=== PATIENT | male | born 1940 | race Caucasian/White ===

== ENCOUNTER → 2017-06-06 | Day surgery (SDC) | payer MEDICARE, OTHER ==
[~2017-06-06] VITALS: Ht 190.5 cm; Wt 173.7 kg
[~2017-06-06] MED LIST: ACET1TAB12 PO; AMOX-366 PO; AMOX500C2 PO; ASPI-973 PO; CARV25TA2 PO; FERR325C PO; FEXO-106 PO; FLUT9.9S NS; FRSM80T PO; FUR20 PO; KEN1O TOP; LAC10 PO; LATA2.5D5 OP; LOSA100T3 PO; Lactated Ringer's 1,000 ML IV ONE; Lactated Ringer's 1,000 ML IV SCH; MELA5TAB14 PO; NOVALOG SQ; NYST15CR TP; NYST60PO TP; OMEP40CA36 PO; ONDA4TAB6 PO; OXYC5TAB72 PO; POLY17PO6 PO; PRAZ2CAP2 PO; PRV40T PO; Propofol 10,000 mCg/mL 20 mL Inj ONE; SENN-133 PO; SERT100T9 PO; WOOL454C TP; ZYL100 PO; [UNRECOGNIZED DRUG - OTHER] SQ; [UNRECOGNIZED DRUG - OTHER] SQ; calcitriol PO; gas relief PO
[2017-06-06 08:27] VITALS: BP 127/70; PULSE 59; RESP 15; O2SAT 96
[2017-06-06 08:51] VITALS: BP 136/74; PULSE 65; RESP 14; O2SAT 95
--- NOTE | 2017-06-06 09:09 | ENDO ---
[address] [address] ENDOSCOPY PROCEDURE PATIENT: JULIETTE MANSFIELD : 1940 MR#: [id number] ADMIT: 06/06/2017 JOB ID: [id number] DATE OF SERVICE: 06/06/2017 TITLE OF OPERATION: Esophagogastroduodenoscopy with biopsy and hot snare polypectomy. PREOPERATIVE DIAGNOSIS(ES): Dysphagia. POSTOPERATIVE DIAGNOSIS(ES): 1. Normal esophagus status post biopsy. 2. Food in the stomach. 3. Mild nonerosive gastritis. 4. A 1 cm gastric polyp seen in the body status post hot snare polypectomy. ANESTHESIA: Monitored anesthesia care. COMPLICATIONS: None. BLOOD LOSS: Minimal. DESCRIPTION OF PROCEDURE: After risks and benefits were explained to the patient, informed consent was obtained. After anesthesia administered, an upper endoscope was inserted in the mouth intubating to the esophagus, stomach, and second portion of duodenum. Mucosa carefully examined. After procedure done, scope withdrawn and procedure terminated. FINDINGS: Upon inspection the esophagus, esophagus was normal without masses, ulcers, or lesions. Z-line located 40 cm from incisors upon entering the stomach. In the stomach, there appeared to be some mild food that was seen in the stomach. There was also a 1 cm gastric polyp seen in the body which was removed by hot snare polypectomy. There was also mild nonerosive gastritis. Duodenal bulb, first and second portion were normal. Biopsies taken from the antrum, body and mid distal esophagus. IMPRESSIONS: 1. Mild nonerosive gastritis. 2. Food in the stomach. 3. A 1 cm gastric body polyp removed by hot snare polypectomy. RECOMMENDATIONS: Await pathology results. Continue omeprazole 40 mg by mouth twice a day. Follow up in GI clinic as needed.
[2017-06-06 09:12] VITALS: BP 142/73; PULSE 60; RESP 16; O2SAT 96
--- NOTE | 2017-06-06 16:35 | PCM.ANEP1 ---
Post Anesthesia PACU Phase 1 Assessment Vital Signs Vital Signs Date Time Temp Pulse Resp B/P Pulse Ox O2 Delivery O2 Flow Rate FiO2 06/06/17 09:12 60 16 142/73 96 Room Air 06/06/17 08:51 65 14 136/74 95 Room Air Anesthetic Administered: MAC Level of Alertness: Awake, talking MILES's with Equal Strength: Yes Pain: No Nausea or Vomiting: No CV Function & Hydration Stable: Yes Airway Device: Oxygen Delivery: Room Air Lungs: Clear to Auscultation, Normal Air Movement Dermatome Level: Full Sensation PACU Phase 2 Assessment Complications: No Follow up Care: N/A Patient Instructions Provided: N/A Ric Nichole MD Jun 06, 2017 16:35
--- NOTE | 2017-06-06 16:35 | PCM.HPANE ---
Patient Data Surgeon Admitting Provider: Attending Provider:Kit Thapa MD Primary Care Physician:Annika Slater PA-C Other Provider: Reason for Visit Esophageal Dysphagia Ht/WT & BMI Body Mass Index Allergies Coded Allergies: Latex, Natural Rubber (Unverified Allergy, Severe, rash, 12/24/15) adhesive (Unverified Allergy, Severe, rash, 12/24/15) hydrocodone (Verified Allergy, Severe, ITCHING, 09/24/15) promethazine (Verified Allergy, Severe, ADR -HALLUCINATIONS, 09/24/15) morphine (Verified Allergy, Intermediate, Hallucinations, 06/06/17) acetaminophen (Unverified Allergy, Mild, 09/24/15) cyclobenzaprine (Unverified Allergy, Mild, 09/24/15) diclofenac (Unverified Allergy, Mild, 09/24/15) duloxetine (Unverified Allergy, Mild, 09/24/15) rosuvastatin (Unverified Allergy, Mild, 09/24/15) vancomycin (Unverified Allergy, Mild, 09/24/15) barium iodide (Verified Allergy, Unknown, 06/05/17) calcium (Verified Allergy, Unknown, 06/05/17) Past Anesthesia History Anesthesia History: Denies:: Abnormal Airway, Anesthesia Reactions, Difficult Intubation, Fam Anesthesia Reaction, Fam Malignant Hypertherm, Malignant Hyperthermia Diabetes History Hx Diabetes?: Yes (1/2 dose lantus tonight, none in am) MRSA MRSA: Yes Medications Reported Medications Furosemide 20 Mg Tab20 Mg PO HS 30 Days Ref 0 03/23/17 Melatonin 5 Mg Tablet5 Mg PO HS PRN Insomnia 08/22/16 Ferrous Sulfate (Iron)325 Mg Capsule.er325 Mg PO DAILY 12/24/15 oxyCODONE 5 Mg Tablet5 Mg PO Q4H PRN For Pain Ref 0 12/24/15 [calcitriol] No Conflict Check12.5 Mcg PO BID 12/24/15 Prazosin 2 Mg Capsule2 Mg PO HS 12/24/15 Nystatin (Nystop)60 Gm Gusqry02 Gm TP HS 12/24/15 Ondansetron (Zofran)4 Mg Tablet4 Mg PO Q4H PRN For Nausea 09/24/15 Latanoprost (Xalatan)2.5 Ml Drops2.5 Ml OP HS 09/24/15 Acetaminophen/Codeine 300-30mg (Tylenol/Codeine #3)1 Each Tablet1 Tablet PO Q6H PRN For Pain Ref 0 09/24/15 Triamcinolone Acet (Triamcinolone Acetonide Ointment)1 Applic/0.25 Gm Oint60 Applic TOP BID #60 GM Ref 0 09/24/15 Sertraline HCl (Sertraline)100 Mg Mimotn910 Mg PO DAILY 30 Days Ref 0 09/24/15 Sennosides (Senna)8.6 Mg Tablet8.6 Mg PO PRN For GI Cramps 09/24/15 Pravastatin (Pravachol)40 Mg Vjkdfp02 Mg PO HS Ref 0 09/24/15 Omeprazole 40 Mg Capsule.dr40 Mg PO BID Ref 0 09/24/15 Nystatin/Triamcin (Nystatin-Triamcinolone Cream)15 Gm Cream..g.15 Gm TP DAILY 09/24/15 [novalog 100/units] No Conflict Check Units SQ ACHS sliding scale 1 unit per 5 grams carbs 09/24/15 Polyethylene Glycol 3350 (Miralax)17 Gm Powd.pack17 Gm PO DAILY 09/24/15 [lanutus 100/units] No Conflict Check30 Units SQ DAILY 09/24/15 [lantutus 100/U] No Conflict Check20 Units SQ DAILY q am 09/24/15 Lactulose 10 Gm/15 Ml Arxobtzf69 Ml PO BID PRN For Constipation #500 Ref 3 09/24/15 [gas relief] No Conflict [place]oa652 Mg PO QID PRN For GI Cramps prn 09/24/15 Furosemide 80 Mg Tab80 Mg PO AM 30 Days Ref 0 09/24/15 Fluticasone Propionate (Flonase Allergy Relief)50 Mcg/Actuation [place].susp2 Sprays NS DAILY 09/24/15 Fexofenadine 180 Mg Zzthcz872 Mg PO DAILY 09/24/15 Lanolin Alcohol/Mo/W.pet/[place] (Eucerin Creme)454 Gm Cream..g.454 Gm TP BID PRN dry skin 09/24/15 Losartan Potassium (Cozaar)100 Mg Kjxtug911 Mg PO DAILY 09/24/15 Carvedilol 25 Mg Mtclru13 Mg PO BID Ref 0 09/24/15 Aspirin 81 Mg Qnlury34 Mg PO HS Ref 0 09/24/15 Allopurinol 100 Mg Psqsxj562 Mg PO BID Ref 0 09/24/15 Discontinued Reported Medications Amoxicillin/Clav K 875-125 mg (Augmentin 875-125 mg)1 Each Tablet1 Tablet PO BID 10 Days Ref 0 dental 12/24/15 Amoxicillin 500 Mg Uueuoio682 Mg PO TID Ref 0 dental 12/24/15 History History of ENT Problems?: Yes HEENT History: Positive for:: Sinus Problem (YEAR ROUND ALLERGIES) Denies:: Abnormal Airway Cataracts Difficult Intubation Dysphagia Glaucoma Hearing Problem TMJ Denture Type: None Teeth Condition: Within Normal Limits Hx of Heart Problems?: Yes Cardiovascular History: Positive for:: Cardiac Surgery (Bypass in November 2002 ) Chest Pain Congestive Heart Failure Edema Heart Murmur Hypertension Thrombophlebitis (LLE) Denies:: AICD Abdominal Aortic Aneurism Atrial Fibrillation Coronary Artery Disease Irregular Heartbeat Pacemaker Peripheral Vascular Rheumatic Fever Valvular Heart Disease Hx of Respiratory Problem?: Yes Respiratory History: Positive for:: Chest Surgery Dyspnea Denies:: Asthma COPD Cough Emphysema Hemoptysis Oxygen Administration Pneumonia Pulmonary Embolism Tuberculosis Use of C-PAP Machine Use of Inhalers / NEBS Hx Neurologic Problems?: Yes Neurological History: Positive for:: Dizziness Headaches Seizures Denies:: Alzheimer's Disease CVA Dementia Multiple Sclerosis Parkinson's Disease Peripheral Neuropathy TIA Hx of GI Problems?: Yes Gastrointestinal History: Denies:: Cirrhosis Diverticulitis Gall Bladder Disease Gastroesphageal Reflux Gastrointestinal Bleeding Heartburn Hepatitis Hiatal Hernia Liver Disease Rectal Bleeding Hx of Problems?: No Genitourinary History: Denies:: HX of Hemodialysis Kidney Stones Urinary Tract Infection HX of Peritoneal Dialysis: No Male Hx: Denies:: Prostate Problems Scrotal Mass Testicular Surgery Skin History: Denies:: History Skin Disorders? Pressure Ulcers Hx Musculoskeletal Problems?: Yes Musculoskeletal History: Positive for:: Back Injury Denies:: Degenerative Joint Fibromyalgia Joint Replacement Musculoskeletal Trauma Myasthenia Gravis Osteoarthritis Rheumatoid Arthritis Systemic Lupus Hx of Psycho/Social Problems?: Yes Psycho Social History: Denies:: Anxiety Bipolar Disorder Hx Depression Suicide Attempt Hx Surgeries?: Yes Hx Any Other Health Problems?: Yes Other History: Positive for:: Cancer Endocrine Disease Hospitalization (Nov 2009 pneumonia) Denies:: Thyroid Disease History Blood Transfusions: Positive for:: Blood Transfusions Denies:: Blood Transfuse Reaction Hx Diabetes: Yes (1/2 dose lantus tonight, none in am) Hx Alcohol Use: NoHx Substance Use: Yes Smoking Status: Former Smoker Have You Smoked inLast 12 mo: No (Quit 20 years ago) Stop/Bang Risk Assessment Category Category 1A: Patient has history of documented sleep apnea, and HAS NOT received any narcotic, sedative or anesthesia administration during this stay. Category 1B: Patient has history of documented sleep apnea, and HAS received any narcotic , sedative or anesthesia administration during this stay Category 2: Patient has SUSPECTED Obstructive Sleep Apnea, and HAS received any narcotic , sedative or anesthesia administration during this stay. Category 3: Patient has SUSPECTED Obstructive Sleep Apnea and HAS NOT received narcotic, sedative or anesthesia administration during this stay. Category 4: Outpatient in Procedural Areas with known sleep apnea or who screen positive for High Risk via the STOP/BANG questionnaire. Exam Exam General Appearance: Alert, Oriented X3, Cooperative, No Acute Distress HEENT/AIRWAY: MP 2, Neck Movement (FROM), Mouth Opening (3 FBMO) Lungs: Clear to Auscultation, Normal Air Movement Heart: Exam Unremarkable, Regular Rate/Rhythm, No Murmurs/Rubs/Gallops Plan Impression Patient chart reviewed, patient interviewed and anesthestic plan with risks, benefits, and alternatives discussed, and informed consent obtained. NPO per Anesth. Guidelines: Yes ASA Physical Status: ASA3 Severe Disease (AICD magnet compatible) Anesthetic Plan: MAC Bene/Risks/Altern/Consents: Yes HP Complete Prior to Induction: Yes Ric Nichole MD Jun 06, 2017 07:23
--- NOTE | 2017-06-07 15:25 | PATH ---
SURGICAL PATHOLOGY Attending Physician:Kit Thapa MD CASE STATUS: Signed Out PATIENT NAME: JULIETTE MANSFIELD PID: [id number] : 1940 DATE COLLECTED:06/06/2017 17:22 SPECIMEN: 1: Stomach, Antrum, Biopsy 2: Gastric, Biopsy 3: Stomach, Polyp, Biopsy 4: Esophagus, Biopsy 5: Esophagus, Biopsy CLINICAL HISTORY: 1). ANTRUM BIOPSY 2). GASTRIC BIOPSY (RULE OUT H.PYLORI) 3). GASTRIC POLYP 4). DISTAL ESOPHAGUS 5). MID ESOPHAGUS FINAL DIAGNOSIS: 1. Gastric Antrum, Biopsy: Portions of gastric antral and fundic mucosa with mild chronic gastritis. No definite H. pylori organisms identified by H&E stain. Negative for intestinal metaplasia, dysplasia and malignancy. 2. Gastric Biopsy: Portions of gastric body-type mucosa with mild chronic inflammation and scattered, dilated fundic glands. Findings are consistent with fundic gland polyp involved by mild inflammation. No. H. pylori organisms identified by H&E stain. Immunohistochemistry studies pending; results will be reported as an addendum. Negative for intestinal metaplasia, dysplasia and malignancy. 3. Gastric Polyp, Biopsy: Fundic gland polyp. Negative for intestinal metaplasia, dysplasia and malignancy. 4. Distal Esophagus, Biopsy: Portions of squamous mucosa with no diagnostic abnormality. No well preserved columnar mucosa is identified for evaluation. 5. Mid Esophagus, Biopsy: Squamous mucosa with no diagnostic abnormality. Intraepithelial eosinophils are not increased. Negative for dysplasia and malignancy. ICD10: K31.7 GROSS DESCRIPTION: The specimen is received in five formalin filled containers labeled with the patient's name. 1). The specimen is labeled "antrum" and consists of 2 portions of tissue which aggregate to 0.3 x 0.3 x 0.2 CM. The specimen is entirely submitted in cassette 1A. 2). The specimen is labeled "gastric" and consists of a 0.3 x 0.3 x 0.2 CM portion of tissue which is entirely submitted in cassette 2A. 3). The specimen is labeled "gastric polyp" and consists of a 0.9 x 0.8 x 0.6 CM portion of tissue. The specimen is trisected and totally submitted in cassette 3A. 4). The specimen is labeled "distal esophagus" and consists of 2 portions of tissue which aggregate to 0.2 x 0.2 x 0.2 CM. The specimen is entirely submitted in cassette 4A. 5). The specimen is labeled "mid esophagus" and consists of 2 portions of tissue which aggregate to 0.3 x 0.3 x 0.2 CM. The specimen is entirely submitted in cassette 5A. 06/06/2017GA ICD-9 CODES: CPT CODES: 1: 62388 2: 42219, 81308, 65015 3: 28263 4: 81806 5: 82981 PROCEDURE/ADDENDA: Immunohistochemistry SPI Interpretation {Not Entered} Results-Comments This is an addendum to report the results of immunohistochemistry. 2. An immunohistochemical stain was performed to evaluate for Helicobacter organisms and is NEGATIVE. A control stain showed appropriate reactivity. *This test was developed and its performance characteristics determined by [employer]. It has not been cleared or approved by the [place]. [place]. Food and Drug Administration. The FDA has determined that such clearance or approval is not necessary. This test is used for clinical purposes. It should not be regarded as investigational or for research. Electronically Signed Out Halley Baldwin MD Electronically Signed Out Lien Dagn MD [facility] Pathology [facility] [address], [place] [address] Technical component performed at [facility], [address], [place], [address]
== END | disposition home or self-care (01) ==
LOC: END 00:20
PROVIDERS: ATTEND Internal Medicine Gastroenterology
DX: K29.50 Unspecified chronic gastritis without bleeding (principal); K31.7 Polyp of stomach and duodenum; I50.22 Chronic systolic (congestive) heart failure; E11.42 Type 2 diabetes mellitus with diabetic polyneuropathy; I25.5 Ischemic cardiomyopathy; I11.0 Hypertensive heart disease with heart failure; I25.10 Atherosclerotic heart disease of native coronary artery without angina pectoris; N18.9 Chronic kidney disease, unspecified; G47.30 Sleep apnea, unspecified; J44.9 Chronic obstructive pulmonary disease, unspecified; F43.10 Post-traumatic stress disorder, unspecified; E78.5 Hyperlipidemia, unspecified; I73.9 Peripheral vascular disease, unspecified; Z95.1 Presence of aortocoronary bypass graft; Z95.810 Presence of automatic (implantable) cardiac defibrillator; Z99.81 Dependence on supplemental oxygen; Z79.82 Long term (current) use of aspirin; Z79.4 Long term (current) use of insulin
CPT/HCPCS: 43239; 88305; J7120